=== PATIENT | male | born 1995 | race Caucasian/White ===

== ENCOUNTER 2020-07-02 22:01 | Emergency (ER) | payer OTHER, SELFPAY ==
[2020-07-02 22:43] VITALS: BP 130/88; PULSE 81; RESP 16; TEMP 36.3; O2SAT 98; BMI 30.8
--- NOTE | 2020-07-02 23:13 | XRR_ITS ---
PROCEDURE INFORMATION: Exam: XR Left Hand Exam date and time: 07/02/2020 11:30 PM Age: 24 years old Clinical indication: Injury or trauma; Other: Laceration; Left; Index finger; Injury date: 07/02/20; Additional info: Finger injury TECHNIQUE: Imaging protocol: XR Left hand. Views: 3 or more views. COMPARISON: No relevant prior studies available. FINDINGS: Bones/joints: No fracture. No dislocation. Soft tissues: Laceration involving the soft tissue of the lateral index finger. No soft tissue radiopaque foreign body. XR/XR hand LT min 3V* [id number] IMPRESSION: Soft tissue injury without osseous injury.
--- NOTE | 2020-07-03 00:59 | ED_ITS ---
HPI - Wound/Laceration General: Chief Complaint: Wound/Laceration Stated Complaint: INJURY TO YASH Time Seen by Provider: 07/03/20 00:58 History of Present Illness: HPI narrative: Patient is a 24-year-old male who comes to the ED with a laceration to second digit on left hand. Injury occurred approximately 12 hours ago. Patient says he was cutting his saddle with a knife and it slipped and cut index finger on left hand. He immediately cleaned out laceration and put some antiseptic spray on the skin around wound. He was able to get the bleeding to stop by using pressure. Denies any history of staph or MRSA. Patient says he is up-to-date on his tetanus and has gotten that within the last year. Associated symptoms: Denies chills, fever(s), nausea or vomiting Review of Systems Const: Denies: fever(s), chills or fatigue Eyes: Denies: change in vision or eye discomfort ENMT: Denies: throat pain, odynophagia, nasal discharge or nasal congestion Card: Denies: chest pain, palpitations, edema, swelling of feet/ankles, dyspnea on exertion or orthopnea Resp: Denies: dyspnea, productive cough or non-productive cough GI: Denies: abdominal pain, nausea, vomiting, diarrhea, constipation or hematochezia : Denies: flank pain, difficulty urinating, dysuria or hematuria Musc: Denies: neck pain, back pain or extremity swelling Skin/Breast: Reports: new lesions (laceration to left index finger); Denies: rash Neuro: Denies: headache(s), numbness in extremities or weakness in extremities Physical Exam Const: COMMON NORMALS: no acute distress, patient oriented x3, healthy appearing and alert GENERAL APPEARANCE: cooperative and comfortable HENMT: COMMON NORMALS: normocephalic HEAD & SCALP: normocephalic MOUTH: Normal oral and palatal mucosa present THROAT: posterior oropharynx normal and uvula midline Neck/C-Spine: COMMON NORMALS: supple GENERAL: Yes normal visual inspection Resp: COMMON NORMALS: normal respiratory effort, No retractions, No use of accessory muscles and clear to auscultation bilaterally AUSCULTATION: clear to auscultation bilaterally Cardio: COMMON NORMALS: regular rate, regular rhythm, S1 normal heart sound present, S2 normal heart sound present, No gallops present (Cardio), No clicks present (Cardio), No murmurs present (Cardio) and Peripheral pulses 2+ throughout RATE: regular rate RHYTHM: regular rhythm HEART SOUNDS: S1 normal heart sound present and S2 normal heart sound present PERIPHERAL PULSES: Peripheral pulses 2+ throughout GI: COMMON NORMALS: Normal to inspection, nondistended, normoactive bowel sounds present, Soft to palpation, non-tender and no masses PALPATION: Yes Soft to palpation : COMMON NORMALS: Yes no CVA tenderness BLADDER/KIDNEY EXAM: Yes no CVA tenderness Back/Pelvis: COMMON NORMALS: no CVA tenderness Extremity: NARRATIVE EXTREMITY EXAM: Patient has a 1.5 cm laceration to the second digit of left hand. It is located just below the PIP joint and on the lateral aspect of the finger. It is not actively bleeding. Patient has normal range of motion with finger. GENERAL: Yes normal exam except as noted Neuro: COMMON NORMALS: patient oriented x3 and moves all extremities SENSORIUM/ORIENTATION: Yes alert Skin: NARRATIVE SKIN EXAM: Patient has a 1.5 cm laceration to the second digit of left hand. It is located just below the PIP joint and on the lateral aspect of the finger. It is not actively bleeding. Patient has normal range of motion with finger. GENERAL SKIN EXAM: dry skin Procedures Laceration Laceration 1: Site: hand (2nd digit) Side (If applicable): left Size (cm): 1.5 Description: linear Depth: simple, single layer Local Anesthetic: bupivacaine 0.5% (Digital block) Amount of anesthesia used (mL): 10 Pre-repair: irrigated extensively Skin layer closed with: nylon Size (cm): 4-0 Number of sutures: 7 Technique: simple, interrupted Nerve Block Nerve Block 1: Time out performed: Yes Local Anesthetic: bupivacaine 0.5% Amount of anesthesia used (mL): 10 Side: left Nerve Blocks: digital Procedure Successful: Yes Patient Tolerated Procedure: well Complications: none Course Vital Signs: Vital signs: Vital Signs Temperature 97.3 F L 07/02/20 22:43 Pulse Rate 66 07/03/20 01:05 Respiratory Rate 16 07/03/20 01:05 Blood Pressure 130/74 07/03/20 01:05 Pulse Oximetry 99 07/03/20 01:05 MDM - Wound/Laceration MDM Narrative: Medical decision making narrative: Patient is a 24-year-old male who comes to the ED with a laceration to left index finger. Left hand x- ray showed no acute fractures or foreign body seen. Patient full range of motion of finger. Laceration was irrigated extensively with normal saline. Digital block was performed and 7 (4-0) sutures were placed to close wound. Patient was given prescription for cephalexin. Wear finger splint to keep finger straight to allow for wound to heal. Have sutures removed in 10 days. Patient understood and agreed with plan. Imaging Data^: Xray Ortho: Attestation: I personally reviewed and interpreted this imaging study as follows: My impression: Left hand x-ray showed no foreign body or acute fracture seen. Discharge Plan Discharge Patient Disposition: Home Clinical Impression: Finger laceration Qualifiers: Encounter type: initial encounter Finger: index finger Damage to nail status: without damage Foreign body presence: without foreign body Laterality: left Qualified Code(s): S61.211A - Laceration without foreign body of left index finger without damage to nail, initial encounter Condition: Stable Prescriptions: New cephalexin 500 mg capsule 500 mg PO Q8H 7 Days Qty: 21 RF: 0 Discharge Orders: Discharge Order (Routine); Ordered 07/03/20 Ordered By: Ahsan Fonseca Referrals: Bob Carter FNP [Primary Care Provider] - Discharge Diet: Regular Discharge Activity: Limit activity as instructed Patient Instructions: Finger Laceration (ED) Activity Restrictions/Additional Instructions: Take full course of antibiotics as prescribed. Wear finger splint to keep finger straight for the next 3 to 4 days. Then remove splint and reevaluate wound closure. Keep laceration site clean and dry for the next 48 hours. Then after that you can clean and re-bandage daily. Watch for signs of infection such as redness, warmth, increased tenderness and puslike drainage. If you see the signs of infection return to the ED, urgent care or PCP for reevaluation. call your PCP to schedule a follow-up appointment for reevaluation and suture removal in about 10 days. Follow discharge plans as discussed. You can return to the ED if symptoms worsen. Coding Level of Care Code ED Medical Lab Technician for [facility] Exam Comprehensive
[2020-07-03 01:05] VITALS: BP 130/74; PULSE 66; RESP 16; O2SAT 99
[2020-07-03] MEDS: cephALEXin 500 mg Capsule PO (02:27)
[2020-07-03 02:32] VITALS: BP 121/76; PULSE 63; RESP 16
== END 2020-07-03 02:39 | disposition home or self-care (01) ==
PROVIDERS: Emergency Provider Physician Assistant; Family Provider Nurse Practitioner Family; PCP Nurse Practitioner Family
DX: S61.211A Laceration without foreign body of left index finger without damage to nail, initial encounter (principal); W26.0XXA Contact with knife, initial encounter
CPT/HCPCS: 12001; 12345; 73130; 99282; 99283; J3490

== ENCOUNTER 2022-01-14 20:16 | Emergency (ER) | payer BC, SELFPAY ==
--- NOTE | 2022-01-14 20:27 | XRR_ITS ---
PROCEDURE INFORMATION: Exam: XR Right Hand Exam date and time: 01/14/2022 8:46 PM Age: 26 years old Clinical indication: Pain; Hand; Right; Additional info: Injury TECHNIQUE: Imaging protocol: XR Right hand. Views: 3 or more views. COMPARISON: No relevant prior studies available. FINDINGS: Bones/joints: Old, healed fracture of the diaphysis of the fifth metacarpal with residual volar angulation of the distal fracture fragment. Findings are consistent with an old boxer's fracture. Fracture of the distal metaphysis of the fifth metacarpal with volar angulation of the distal fracture fragment. Findings are consistent with a boxer's fracture. No dislocation. Normal bone mineralization. No joint effusion. Joint spaces are maintained. Soft tissues: Mild soft tissue swelling over the 5th metacarpal. No radiopaque foreign body. XR/XR hand RT min 3V* [id number] IMPRESSION: 1. Findings consistent with an acute boxer's fracture of the distal fifth metacarpal. 2. Old boxer's fracture of the mid diaphysis of the 5th metacarpal.
[2022-01-14 20:29] VITALS: BP 117/74; PULSE 102; RESP 18; TEMP 36.6; O2SAT 99; BMI 35.5
--- NOTE | 2022-01-14 20:40 | ED_ITS ---
HPI - Extremity Problem General: Chief complaint: Extremity Injury, Upper Stated complaint: injured R hand Time Seen by Provider: 01/14/22 20:27 Source: patient Mode of arrival: ambulatory Limitations: no limitations History of Present Illness: 26-year-old male who states that he was kicked by a donkey 2 hours ago in his right hand. He states he has broken that hand before but states he did not wear cast wrist surgery and states when he got kicked he had immediate sharp pain he states pain is an 8 out of 10 on the lateral portion of his hand denies any other injuries denies radiation of his pain states pain is much worse with movement or palpation and is improved with rest Associated symptoms: Reports chest pain; Deny fever(s) or rash Review of Systems Const: Denies: fever(s), chills, body aches or change in appetite Eyes: Denies: blurry vision or eye discomfort ENMT: Denies: throat pain or dental pain Card: Reports: chest pain Resp: Denies: dyspnea GI: Denies: abdominal pain, nausea, vomiting or diarrhea : Denies: dysuria Musc: Denies: neck pain or back pain Skin/Breast: Denies: rash Neuro: Denies: headache(s) Psych: Denies: depression Aleks/Lymph: Denies: easy bruising All/Imm: Denies: urticaria PFSH ED PFSH: Medical History (Updated 01/14/22 @ 21:01 by Lashawn Pham MD) No pertinent past medical history Social History (Updated 01/14/22 @ 20:42 by Lashawn Pham MD) Substance/Drug Use: never Physical Exam Const: COMMON NORMALS: no acute distress, patient oriented x3 and healthy appearing HENMT: COMMON NORMALS: normocephalic and atraumatic HEAD & SCALP: normocephalic and atraumatic Eye: COMMON NORMALS: Equal, round and reactive pupils present and EOMs intact bilaterally PUPIL: Yes Equal, round and reactive pupils present Neck/C-Spine: COMMON NORMALS: full ROM and supple Chest: COMMONS NORMALS: normal inspection of the chest and normal palpation of entire chest wall Resp: COMMON NORMALS: normal respiratory effort, No retractions, No use of accessory muscles and clear to auscultation bilaterally AUSCULTATION: clear to auscultation bilaterally Cardio: COMMON NORMALS: regular rate, regular rhythm and No murmurs present (Cardio) RATE: regular rate RHYTHM: regular rhythm GI: COMMON NORMALS: Normal to inspection, nondistended, normoactive bowel sounds present, Soft to palpation, non-tender and no masses PALPATION: Yes Soft to palpation Extremity: COMMON NORMALS: full ROM NARRATIVE EXTREMITY EXAM: Tenderness over right lateral hand Neuro: COMMON NORMALS: patient oriented x3, moves all extremities and no focal motor deficits Psych: COMMON NORMALS: mental status grossly normal, Normal thought process present and cooperative THOUGHT PROCESS: Normal thought process present Skin: COMMON NORMALS: no rashes or lesions noted and no wounds GENERAL SKIN EXAM: no rashes or lesions noted Course Vital Signs: Vital signs: Vital Signs Temperature 97.9 F 01/14/22 20:29 Pulse Rate 102 H 01/14/22 20:29 Respiratory Rate 18 01/14/22 20:29 Blood Pressure 117/74 01/14/22 20:29 Pulse Oximetry 99 01/14/22 20:29 MDM - Extremity (Nontraumatic) Medical Decision Making Patient presents here with right hand injury after being kicked by a donkey x- ray shows possible fracture to right fifth metacarpal distal portion we will place him in a ulnar gutter splint and have him follow-up with orthopedics. Discharge Plan Discharge Patient Disposition: Home Clinical Impression: Fracture of hand Qualifiers: Encounter type: initial encounter Fracture type: closed Laterality: right Qualified Code(s): S62.91XA - Unspecified fracture of right wrist and hand, initial encounter for closed fracture Prescriptions: New hydrocodone-acetaminophen 5-325 mg tablet 1 tab PO Q6H PRN (Reason: pain) Qty: 14 0RF Discharge Orders: Discharge ED (Routine); Ordered 01/14/22 Ordered By: Lashawn Pham Referrals: Nadiya Bunch MD [Physician] - 1-3 days Bob Carter FNP [Primary Care Provider] - Discharge Diet: Advance as tolerated Discharge Activity: Resume usual activity Patient Instructions: Hand Fracture (ED), Opioid Safety Stand Alone Forms: Work/School Release Coding Level of Care Code ED Friction Paint Machine Tender for [facility] Fwd Exam Comprehensive
[2022-01-14] MEDS: HYDROcodone-acetaminophen 7.5-325 mg Tablet 1 TAB PO (20:45)
--- NOTE | 2022-01-16 08:50 | DCPLANNER ---
Addendum entered by Sanam Steele 01/22/22 19:38: Patient had a follow up appointment scheduled with ortho - patient did attend appointment. Addendum entered by Sanam Steele 01/17/22 14:50: Patient has a follow up appointment scheduled for Thursday, January 20, 2022 at 2:[address] Bunch at ortho. Clinic will call patient with appointment information. Original Note: late entry - clinical case manager had message to schedule a follow up appointment for patient with ortho. automotive sales manager sent patients information to the front office staff at ortho. Patients information will be printed and reviewed. Clinic will call patient with appointment information.
== END 2022-01-14 21:21 | disposition home or self-care (01) ==
PROVIDERS: Emergency Provider Emergency Medicine; PCP Nurse Practitioner Family
DX: S62.91XA Unspecified fracture of right hand, initial encounter for closed fracture (principal); W55.32XA Struck by other hoof stock, initial encounter
CPT/HCPCS: 29125; 73130; 99283

== ENCOUNTER 2022-01-16 09:48 | Emergency (ER) | payer BC, SELFPAY ==
[2022-01-16 09:54] VITALS: BP 131/87; PULSE 55; RESP 18; TEMP 36.7; O2SAT 100; BMI 35.5
--- NOTE | 2022-01-16 09:58 | ED_ITS ---
HPI - Extremity Problem General: Chief complaint: Extremity Injury, Upper Stated complaint: Right hand numb and cold previous injury Time Seen by Provider: 01/16/22 09:58 Source: patient Mode of arrival: ambulatory Limitations: no limitations History of Present Illness: 26-year-old male presents emergency room he seen a couple days ago with a right fifth metatarsal fracture (boxer's fracture). No recurrent injury. He states he feels like the fingers have been numb and tingling. He still has a splint in place that was applied that evening. MD Complaint: extremity pain and extremity swelling Onset (ago): day(s) Pain Consistency: constant Location: right Quality: other (Numbness tingling) Relieving factors: nothing Exacerbating factors: nothing Associated symptoms: Deny arthralgias, chest pain, fever(s), myalgias, rash or short of breath Review of Systems Const: Denies: fever(s) or chills Card: Denies: chest pain Skin/Breast: Denies: rash PFS ED PFSH: Medical History No pertinent past medical history Physical Exam Const: COMMON NORMALS: no acute distress GENERAL APPEARANCE: cooperative and comfortable ORIENTATION/CONSCIOUSNESS: Yes awake, Yes oriented to person, Yes oriented to place and Yes oriented to time HENMT: COMMON NORMALS: normocephalic and atraumatic HEAD & SCALP: normocephalic and atraumatic Resp: COMMON NORMALS: normal respiratory effort, No retractions and clear to auscultation bilaterally AUSCULTATION: clear to auscultation bilaterally Cardio: COMMON NORMALS: regular rate and regular rhythm RATE: regular rate RHYTHM: regular rhythm Extremity: COMMON NORMALS: normal to inspection, capillary refill normal, no clubbing, cyanosis or edema, no calf tenderness and no pedal edema Neuro: SENSORIUM/ORIENTATION: Yes oriented to person, Yes oriented to place and Yes oriented to time Skin: COMMON NORMALS: no rashes or lesions noted GENERAL SKIN EXAM: no rashes or lesions noted Course Vital Signs: Vital signs: Vital Signs Temperature 98.1 F 01/16/22 09:54 Pulse Rate 55 L 01/16/22 09:54 Respiratory Rate 18 01/16/22 09:54 Blood Pressure 131/87 01/16/22 09:54 Pulse Oximetry 100 04/28/22 09:54 MDM - Extremity (Nontraumatic) Medical Decision Making Fracture remained stable good capillary refill neurovascular intact splint rewrapped looser to for comfort follow-up with Ortho as planned Medical Records I reviewed the patient's medical records. Lab Data I reviewed the patient's lab results. Radiology Impressions Hand X-Ray 01/16/22 09:59 IMPRESSION: 1. Increasing soft tissue edema along the dorsal surface of the hand. 2. Acute minimally displaced and volarly angulated fifth distal metacarpal fracture. Discharge Plan Discharge Patient Disposition: Home Clinical Impression: Boxer's fracture Condition: Stable Prescriptions: No Action hydrocodone-acetaminophen 5-325 mg tablet 1 tab PO Q6H PRN (Reason: pain) Qty: 14 0RF Discharge Orders: Discharge ED (Routine); Ordered 01/16/22 Ordered By: Jeremias Lerma Referrals: Bob Carter FNP [Primary Care Provider] - Discharge Diet: Usual diet Discharge Activity: Limit activity as instructed Patient Instructions: Opioid Safety Activity Restrictions/Additional Instructions: Limit use of right hand until released by orthopedics Coding Level of Care Code ED Dredge Lever Operator for [facility] Fwd Exam Detailed
--- NOTE | 2022-01-16 09:59 | XR_ITS ---
WS: [id number] RIGHT HAND: 3 VIEW(S) TECHNIQUE: PA, oblique and lateral. HISTORY: pain/boxer fx COMPARISON: 01/14/2022 Acute boxer's fracture involving the fifth metacarpal neck with slight volar angulation of the head. This was described on 01/14/2022 without increase or change in alignment. Probably remote fracture in the mid metacarpal as there is increased callus formation. No additional fractures are identified. Increased soft tissue swelling and edema over the dorsal surface of the hand. Edema has increased sin ce the prior study. XR/XR hand RT min 3V* [id number] IMPRESSION: 1. Increasing soft tissue edema along the dorsal surface of the hand. 2. Acute minimally displaced and volarly angulated fifth distal metacarpal fra cture.
[2022-01-16 10:44] VITALS: BP 132/80; PULSE 58; O2SAT 99
== END 2022-01-16 10:47 | disposition home or self-care (01) ==
PROVIDERS: Emergency Provider Family Medicine; PCP Nurse Practitioner Family
DX: S62.326A Displaced fracture of shaft of fifth metacarpal bone, right hand, initial encounter for closed fracture (principal); X58.XXXA Exposure to other specified factors, initial encounter
CPT/HCPCS: 73130; 99282

== ENCOUNTER 2022-01-20 15:52 | Outpatient (CLI) | payer BC, SELFPAY | END 2022-01-20 15:53 | disposition home or self-care (01) | LOC: SPT 15:53 | PROVIDERS: PCP Nurse Practitioner Family; Visit Provider Specialist | DX: Z46.89 Encounter for fitting and adjustment of other specified devices (principal); S62.336D Displaced fracture of neck of fifth metacarpal bone, right hand, subsequent encounter for fracture with routine healing; X58.XXXD Exposure to other specified factors, subsequent encounter | CPT/HCPCS: 73130; 97760; L3984 ==

== ENCOUNTER → 2022-02-10 09:43 | Outpatient (BNVA) | payer BC, SELFPAY | PROVIDERS: PCP Nurse Practitioner Family; Visit Provider Specialist | DX: S62.336D Displaced fracture of neck of fifth metacarpal bone, right hand, subsequent encounter for fracture with routine healing (principal); X58.XXXD Exposure to other specified factors, subsequent encounter | CPT/HCPCS: 73130 ==

== ENCOUNTER 2022-06-26 20:49 | Emergency (ER) | payer BC, SELFPAY ==
--- NOTE | 2022-06-26 21:28 | CTR_ITS ---
PROCEDURE INFORMATION: Exam: CT Head Without Contrast Exam date and time: 06/26/2022 9:41 PM Age: 26 years old Clinical indication: Injury or trauma; Fall; Blunt trauma (contusions or hematomas); Patient HX: Sustained a blow to occiput from a tractor shaft spinnning at high rpm that broke loose. C/O occipatal pain with light sensitivity. ; Additional info: Head injury TECHNIQUE: Imaging protocol: Computed tomography of the head without contrast. Radiation optimization: All CT scans at this facility use at least one of these dose optimization techniques: automated exposure control; mA and/or kV adjustment per patient size (includes targeted exams where dose is matched to clinical indication); or iterative reconstruction. COMPARISON: CT head wo con* [id number] 07/10/2017 7:03 PM RADIATION DOSE METRICS: Total DLP (mGy-cm): 1201.78 FINDINGS: Brain: Normal. No hemorrhage. Unremarkable white matter. No mass effect. Cerebral ventricles: No ventriculomegaly. Paranasal sinuses: Minimal paranasal sinus disease. No fluid levels. Mastoid air cells: Visualized mastoid air cells are well aerated. Bones/joints: Unremarkable. No acute fracture. Soft tissues: Unremarkable. CT/CT head wo con* [id number] IMPRESSION: No acute intracranial hemorrhage, mass effect, or midline shift.
[2022-06-26 21:30] VITALS: BP 150/105; PULSE 83; RESP 20; O2SAT 100; BMI 36.1
--- NOTE | 2022-06-26 21:31 | W.ED.HEATRA ---
HPI - Head Injury General: Chief complaint: Head Injury Stated complaint: Head injury Time Seen by Provider: 06/26/22 21:28 Source: patient Mode of arrival: ambulatory Limitations: no limitations History of Present Illness: 26-year-old male who states that he is working with a tractor and that the auger had broke the drive shaft and it whipped around and hit him in the back of the head. He did lose consciousness he had trouble speaking a little while after the event as well. This happened roughly an hour ago his speech is back to normal he states he does have a headache he rates an 8 out of 10 along with some light sensitivity denies any neck pain denies any other injuries. Associated symptoms: Deny nausea, neck pain or vomiting Review of Systems Const: Denies: fever(s), chills, body aches or change in appetite Eyes: Denies: blurry vision or eye discomfort ENMT: Denies: throat pain or dental pain Card: Denies: chest pain Resp: Denies: dyspnea GI: Denies: abdominal pain, nausea, vomiting or diarrhea : Denies: dysuria Musc: Denies: neck pain or back pain Skin/Breast: Denies: rash Neuro: Reports: headache(s) Psych: Denies: depression Aleks/Lymph: Denies: easy bruising All/Imm: Denies: urticaria PFSH ED PFSH: Medical History No pertinent past medical history Social History Smoking and tobacco status: never smoked Physical Exam Const: COMMON NORMALS: no acute distress, patient oriented x3 and healthy appearing HENMT: OTHER: Tenderness to posterior scalp Eye: COMMON NORMALS: Equal, round and reactive pupils present and EOMs intact bilaterally PUPIL: Yes Equal, round and reactive pupils present Neck/C-Spine: COMMON NORMALS: full ROM and supple Chest: COMMONS NORMALS: normal inspection of the chest and normal palpation of entire chest wall Resp: COMMON NORMALS: normal respiratory effort, No retractions, No use of accessory muscles and clear to auscultation bilaterally AUSCULTATION: clear to auscultation bilaterally Cardio: COMMON NORMALS: regular rate, regular rhythm and No murmurs present (Cardio) RATE: regular rate RHYTHM: regular rhythm GI: COMMON NORMALS: Normal to inspection, nondistended, normoactive bowel sounds present, Soft to palpation, non-tender and no masses PALPATION: Yes Soft to palpation Extremity: COMMON NORMALS: normal to inspection and full ROM Neuro: COMMON NORMALS: patient oriented x3, moves all extremities and no focal motor deficits Psych: COMMON NORMALS: mental status grossly normal, Normal thought process present and cooperative THOUGHT PROCESS: Normal thought process present Skin: COMMON NORMALS: no rashes or lesions noted and no wounds GENERAL SKIN EXAM: no rashes or lesions noted Course Vital Signs: Vital signs: Vital Signs Pulse Rate 77 06/26/22 22:13 Respiratory Rate 16 06/26/22 22:13 Blood Pressure 137/93 06/26/22 22:13 Pulse Oximetry 97 06/26/22 22:13 Oxygen Delivery Me thod 06/26/22 21:30 MDM - Head Injury Medcial Decision Making Patient presents here with a closed head injury with likely concussion head CT here is normal he is well-appearing here he stable for discharge he is to not work until Thursday we will prescribe him pain meds if he has any worsening symptoms he is return he understands agrees to plan. Lab Data Radiology Impressions Head CT 06/26/22 21:28 IMPRESSION: No acute intracranial hemorrhage, mass effect, or midline shift. Discharge Plan Discharge Patient Disposition: Home Clinical Impression: Closed head injury Qualifiers: Encounter type: initial encounter Qualified Code(s): S09.90XA - Unspecified injury of head, initial encounter Condition: Stable Prescriptions: New hydrocodone-acetaminophen 5-325 mg tablet 1 tab PO Q6H PRN (Reason: pain) Qty: 14 0RF No Action (DME) ULNTER GUTTER FAST FORM COCK UP SPLINT See Rx Instructions .ROUTE .MEDSUPPLY Qty: 1 0RF Rx Instructions: As directed (DME) ULNTER GUTTER FAST FORM COCK UP SPLINT See Rx Instructions .Route .MEDSUPPLY Qty: 1 0RF Rx Instructions: As directed hydrocodone-acetaminophen 5-325 mg tablet 1 tab PO Q6H PRN (Reason: pain) Qty: 14 0RF Discharge Orders: Discharge ED (Routine); Ordered 06/26/22 Ordered By: Lashawn Pham Referrals: Bob Carter FNP [Primary Care Provider] - 1-3 days Discharge Diet: Advance as tolerated Discharge Activity: Resume usual activity Patient Instructions: Concussion (ED), Head Injury (ED), Opioid Safety Coding Level of Care Code ED Chief Architect for [facility] Fwd Exam Comprehensive
[2022-06-26] MEDS: HYDROcodone-acetaminophen 5-325 mg Tablet 1 TAB PO (21:39)
[2022-06-26 22:13] VITALS: BP 137/93; PULSE 77; RESP 16; O2SAT 97
[2022-06-26 23:06] VITALS: BP 139/89; PULSE 79; RESP 18; TEMP 36.7; O2SAT 99
== END 2022-06-26 23:09 | disposition home or self-care (01) ==
PROVIDERS: Emergency Provider Emergency Medicine; PCP Nurse Practitioner Family
DX: S09.8XXA Other specified injuries of head, initial encounter (principal); W20.8XXA Other cause of strike by thrown, projected or falling object, initial encounter
CPT/HCPCS: 70450; 99284

== ENCOUNTER → 2022-09-08 12:27 | Outpatient (BNVA) | payer BC, SELFPAY | PROVIDERS: PCP Nurse Practitioner Family; Visit Provider Family Medicine Adult Medicine | DX: J06.9 Acute upper respiratory infection, unspecified (principal); Z20.822 Contact with and (suspected) exposure to COVID-19 | CPT/HCPCS: 87426 ==

== ENCOUNTER 2023-08-02 12:34 | Emergency (ER) | payer BC, SELFPAY ==
[2023-08-02 12:40] VITALS: BP 142/94; PULSE 101; RESP 17; TEMP 36.9; O2SAT 100; BMI 34.4
--- NOTE | 2023-08-02 12:55 | ED_ITS ---
HPI - General Adult General: Chief complaint: Wound/Laceration Stated complaint: Cut finger said he needs stiches cant stop bleedin Time Seen by Provider: 08/02/23 12:52 Source: patient Mode of arrival: ambulatory Limitations: no limitations History of Present Illness: 27-year-old male states that he was skinning a deer lacerated his left index finger. He does have a laceration of the base of the left index finger states this just happened 30 minutes ago he is up-to-date on his tetanus he denies any other injuries bleeding controlled at this time. Associated symptoms: Deny chest pain, dyspnea, headache(s), nausea, rash or vomiting Review of Systems Const: Denies: fever(s), chills, body aches or change in appetite ENMT: Denies: throat pain or dental pain Card: Denies: chest pain Resp: Denies: dyspnea GI: Denies: abdominal pain, nausea, vomiting or diarrhea Musc: Denies: neck pain or back pain Skin/Breast: Reports: skin pain; Denies: rash Neuro: Denies: headache(s) PFSH ED PFSH: Medical History Acute pharyngitis No pertinent past medical history URI with cough and congestion Social History Smoking and tobacco/nicotine status: never used tobacco/nicotine Substance/Drug Use: never Physical Exam Const: COMMON NORMALS: no acute distress, patient oriented x3 and healthy appearing HENMT: COMMON NORMALS: normocephalic and atraumatic HEAD & SCALP: normocephalic and atraumatic Eye: COMMON NORMALS: Equal, round and reactive pupils present PUPIL: Yes Equal, round and reactive pupils present Neck/C-Spine: COMMON NORMALS: full ROM and supple Chest: COMMONS NORMALS: normal inspection of the chest Resp: COMMON NORMALS: normal respiratory effort Extremity: COMMON NORMALS: full ROM Neuro: COMMON NORMALS: patient oriented x3, moves all extremities and no focal motor deficits Psych: COMMON NORMALS: mental status grossly normal, Normal thought process present and cooperative THOUGHT PROCESS: Normal thought process present Skin: COMMON NORMALS: no rashes or lesions noted NARRATIVE SKIN EXAM: 4 cm laceration base of left index finger no tendon involvement GENERAL SKIN EXAM: no rashes or lesions noted Procedures Laceration Laceration 1: Site: hand Side (If applicable): left Size (cm): 4 Description: linear Depth: simple, single layer Local Anesthetic: lidocaine 1% Amount of anesthesia used (mL): 8 Pre-repair: irrigated extensively and deep structures intact Skin layer closed with: nylon Size (cm): 4-0 Number of sutures: 6 Technique: simple, interrupted Course Vital Signs: Vital signs: Vital Signs Temperature 98.4 F 08/02/23 12:40 Pulse Rate 101 H 08/02/23 12:40 Respiratory Rate 17 08/02/23 12:40 Blood Pressure 142/94 08/02/23 12:40 Pulse Oximetry 100 08/02/23 12:40 Oxygen Delivery Me thod Room Air 08/02/23 12:40 MDM - General Adult Medical Decision Making Patient presents here with finger laceration laceration was repaired here he is to have sutures out in 7 days no tendon involvement he is stable for discharge return if worsening Medical Records I reviewed the patient's medical records. No radiology studies performed this visit Discharge Plan Discharge Patient Disposition: Home Clinical Impression: Finger laceration Condition: Stable Prescriptions: No Action triamcinolone acetonide [Nasacort Allergy] 55 mcg aerosol,spray 2 spray intranasal DAILY Qty: 16.9 1RF Rx Instructions: administer into each nostril amoxicillin 875 mg tablet 875 mg PO BID Qty: 14 0RF Discharge Orders: Discharge ED (Routine); Ordered 08/02/23 Ordered By: Lashawn Pham Referrals: Bob Carter FNP [Primary Care Provider] - Discharge Diet: Advance as tolerated Discharge Activity: Resume usual activity Patient Instructions: Care For Your Stitches (ED), Laceration (ED) Activity Restrictions/Additional Instructions: Suture removal in 7 days 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
== END 2023-08-02 13:48 | disposition home or self-care (01) ==
PROVIDERS: Emergency Provider Emergency Medicine; PCP Nurse Practitioner Family
DX: S61.211A Laceration without foreign body of left index finger without damage to nail, initial encounter (principal); W26.0XXA Contact with knife, initial encounter
CPT/HCPCS: 12002; 99282

== ENCOUNTER 2023-09-29 08:05 | Emergency (ER) | payer OTHER, SELFPAY ==
[2023-09-29 08:09] VITALS: BP 127/88; PULSE 68; RESP 18; TEMP 36.7; O2SAT 97
--- NOTE | 2023-09-29 08:13 | ED_ITS ---
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 Associated symptoms: Denies chills or fever(s) Review of Systems Const: Denies: fever(s) or chills Resp: Denies: dyspnea [facility] ED PFSH: Medical History (Updated 09/29/23 @ 08:45 by Jeremias Lerma DO) URI with cough and congestion Social History Smoking and tobacco/nicotine status: never used tobacco/nicotine Substance/Drug Use: never Physical Exam Const: COMMON NORMALS: no acute distress GENERAL APPEARANCE: cooperative and comfortable ORIENTATION/CONSCIOUSNESS: Yes awake Procedures Laceration Laceration 1: Site: hand Side (If applicable): left Size (cm): 6 Description: linear Depth: simple, single layer Local Anesthetic: lidocaine 1% and with epi Amount of anesthesia used (mL): 3 Pre-repair: wound explored, irrigated extensively and deep structures intact Skin layer closed with: other (prolene) Size (cm): 3-0 Number of sutures: 1 Technique: running Course Vital Signs: Vital signs: Vital Signs Temperature 98.1 F 09/29/23 08:09 Pulse Rate 68 09/29/23 08:09 Respiratory Rate 18 09/29/23 08:09 Blood Pressure 127/88 09/29/23 08:09 Pulse Oximetry 97 09/29/23 08:09 Oxygen Delivery Me thod Room Air 09/29/23 08:09 MDM - Wound/Laceration Medical Decision Making Wound care instructions given apply topical [id number] antibiotic ointment twice daily. Augmentin 875 twice daily for 5 days due to the conditions which she sustained the injury. Sutures out in 7 to 10 days. He can return to work but should only do jobs that he is able to keep the wound protected, clean and dry until the sutures are out No radiology studies performed this visit Discharge Plan Discharge Patient Disposition: Home Clinical Impression: Laceration Condition: Stable Prescriptions: New amoxicillin-pot clavulanate 875-125 mg tablet 1 tab PO BID Qty: 10 0RF Discharge Orders: Discharge ED (Routine); Ordered 09/29/23 Ordered By: Jeremias Lerma Referrals: Bob Carter FNP [Primary Care Provider] - Discharge Diet: Usual diet Discharge Activity: Increase activity as tolerated Patient Instructions: Opioid Safety, Pain Management Activity Restrictions/Additional Instructions: Thank you for choosing [facility] for your healthcare needs today. Please realize this is an emergency room and that we are providing you with a medical screening exam and this may not be complete and all inclusive of all the testing and or work up that you may need to determine your ailment or severity of your illness. It is very important that you follow up as instructed or that you return to the Emergency Department should you have concerns or if your condition changes or worsens in any way. Sutures should be removed in 10 days. Keep wound clean dry and covered during that time. Apply topical antibiotic ointment twice daily. 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
[2023-09-29] MEDS: tetanus-dipt-pertussis 0.5 mL SDV IM (08:38)
[2023-09-29] MEDS: ceFAZolin 1,000 MG in water for injection-sterile 2.5 ML 1 MG IM (08:40)
--- NOTE | 2023-09-29 08:58 | PC.NURSE ---
L hand laceration repair with irrigation and sutures by Dr Lerma.
== END 2023-09-29 09:02 | disposition home or self-care (01) ==
PROVIDERS: Emergency Provider Family Medicine; PCP Nurse Practitioner Family
DX: S61.412A Laceration without foreign body of left hand, initial encounter (principal); W26.8XXA Contact with other sharp object(s), not elsewhere classified, initial encounter; Y99.0 Civilian activity done for income or pay; Z23 Encounter for immunization
CPT/HCPCS: 12002; 90471; 90715; 96372; 99284; A6446; J0690

== ENCOUNTER 2024-01-02 18:44 | Emergency (ER) | payer BC, SELFPAY ==
[2024-01-02 18:58] VITALS: BP 118/76; PULSE 108; RESP 18; TEMP 36.7; O2SAT 98; BMI 35.6
--- NOTE | 2024-01-02 19:24 | XRR_ITS ---
PROCEDURE INFORMATION: Exam: XR Left Knee Exam date and time: 01/02/2024 7:36 PM Age: 28 years old Clinical indication: Injury or trauma; Patella or knee; Left; Foreign body involvement not specified; Patient HX: Laceration to anterior side of knee from chainsaw. ; Additional info: Chainsaw injury anterior knee TECHNIQUE: Imaging protocol: Radiologic exam of the left knee. Views: 3 views. COMPARISON: CR XR ankle LT min 3V* [id number] 05/21/2022 12:09 PM FINDINGS: Bones/joints: No evidence of acute fracture or dislocation. No erosive disease. No significant degenerative change. No evidence of patellar displacement. Soft tissues: There is a soft tissue defect along the anterior distal thigh just above the patella. No radiopaque foreign body. XR/XR knee LT 3V* [id number] IMPRESSION: Suprapatellar soft tissue laceration. There is no evidence of full-thickness injury of the suprapatellar quadriceps tendon. No radiopaque foreign body.
--- NOTE | 2024-01-02 19:25 | ED_ITS ---
HPI - Wound/Laceration General: Chief Complaint: Wound/Laceration Stated Complaint: left leg lac Time Seen by Provider: 01/02/24 19:19 History of Present Illness: 28-year-old male presenting with a chain saw injury to the anterior left distal thigh. He bled some on the scene, and quick clot was poured in the wound. This was followed by pressure dressing. Bleeding is now controlled. The patient complains of some paresthesias to the anterior leg. He is otherwise able to move his toes, and leg appropriately. He does not have bony tenderness. Associated symptoms: Denies vomiting Review of Systems GI: Denies: vomiting Musc: Denies: neck pain Neuro: Reports: numbness in extremities (subjective) [facility] ED PFSH: Medical History URI with cough and congestion Social History Smoking and tobacco/nicotine status: never used tobacco/nicotine Substance/Drug Use: never Physical Exam Const: COMMON NORMALS: no acute distress GENERAL APPEARANCE: cooperative; not ill appearing and not frail appearing HENMT: COMMON NORMALS: normocephalic, atraumatic and Normal external nose present HEAD & SCALP: normocephalic and atraumatic FACE & SINUS: normal facial exam and face symmetric NOSE: Normal external nose present Eye: COMMON NORMALS: Equal, round and reactive pupils present and EOMs intact bilaterally PUPIL: Yes Equal, round and reactive pupils present Neck/C-Spine: GENERAL: Yes trachea midline Chest: CHEST: Yes Symmetrical chest wall rise Resp: COMMON NORMALS: normal respiratory effort, No retractions and No use of accessory muscles Cardio: COMMON NORMALS: regular rate and regular rhythm RATE: regular rate RHYTHM: regular rhythm Extremity: NARRATIVE EXTREMITY EXAM: 9 cm laceration to anterior thigh, to th e subcutaneous fat level. Macerated skin tissue overlies. Bleeding is controlled. No noted foreign bodies. Neuro: JA COMA SCALE: document GCS findings Ja coma scale eye opening: Spontaneous [place] coma scale verbal response: Orientated [place] coma scale motor response: Obey commands [place] coma scale total score: 15 SENSORY EXAM: Yes extremities (intact) Psych: COMMON NORMALS: speech normal SPEECH: Yes normal speech Skin: COMMON NORMALS: no rashes or lesions noted GENERAL SKIN EXAM: no rashes or lesions noted Procedures Laceration Laceration 1: Site: lower extremity Side (If applicable): left Size (cm): 9 Description: irregular and contaminated Local Anesthetic: lidocaine 1% Amount of anesthesia used (mL): 12 Pre-repair: wound explored, irrigated extensively, deep structures intact and extensive debridement Skin layer closed with: other (prolene) Size (cm): 3-0 Number of sutures: 9 Technique: simple, interrupted Subcutaneous layer closed with: vicryl Size: 3-0 Number of sutures: 4 Technique: simple, interrupted Course Vital Signs: Vital signs: Vital Signs Temperature 98.1 F 01/02/24 18:58 Pulse Rate 108 H 01/02/24 18:58 Respiratory Rate 18 01/02/24 18:58 Blood Pressure 118/76 01/02/24 18:58 Pulse Oximetry 98 01/02/24 18:58 Oxygen Delivery Me thod Room Air 01/02/24 18:58 MDM - Wound/Laceration Medical Decision Making Extensor mechanism is intact on exam. Wound was probed with sterile probe, and only fat layer involved. X-ray shows no air in the joint or foreign body. Extensive irrigation performed. Closed without complication. Outpatient follow-up. His tetanus is up-to-date. Antibiotics prescribed. Lab Data Radiology Impressions Knee X-Ray 01/02/24 19:24 IMPRESSION: Suprapatellar soft tissue laceration. There is no evidence of full-thickness injury of the suprapatellar quadriceps tendon. No radiopaque foreign body. All radiology interpretation(s) finalized by discharge Discharge Plan Discharge Patient Disposition: Home Clinical Impression: Deep laceration of thigh Condition: Stable Prescriptions: New cephalexin 500 mg tablet 500 mg PO Q6H 7 Days Qty: 28 0RF hydrocodone-acetaminophen 5-325 mg tablet 1 tab PO Q8H PRN (Reason: pain) Qty: 7 0RF No Action amoxicillin-pot clavulanate 875-125 mg tablet 1 tab PO BID Qty: 10 0RF Discharge Orders: Discharge ED (Routine); Ordered 01/02/24 Ordered By: Alexandre Saxena Referrals: Black Ferro MD [Primary Care Provider] - 4-7 days (For wound check) Patient Instructions: Laceration (ED), Opioid Safety, Pain Management Activity Restrictions/Additional Instructions: Keep clean and dry for 24 hours, then you may wash with soap and running water. Do not submerge in a tub, etc. Until sutures are removed. Sutures should be removed in 7 to 10 days. See your doctor for this. Antibiotics as directed. Return for any problems. 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
[2024-01-02] MEDS: oxyCODONE-APAP 5-325 mg Tablet 2 TAB PO (19:29)
[2024-01-02] MEDS: lidocaine-epi 1% 20 mL INJ INJECTION (20:45)
--- NOTE | 2024-01-02 20:53 | PC.NURSE ---
Cleaned right knee after provider sutured laceration. Covered with abd pad and kerlex dressing
[2024-01-02] MEDS: cephALEXin 500 mg Capsule 1000 MG PO (21:00)
== END 2024-01-02 21:02 | disposition home or self-care (01) ==
PROVIDERS: Emergency Provider Emergency Medicine; PCP Family Medicine
DX: S71.112A Laceration without foreign body, left thigh, initial encounter (principal); W29.3XXA Contact with powered garden and outdoor hand tools and machinery, initial encounter
CPT/HCPCS: 12034; 73562; 99283

== ENCOUNTER 2025-01-13 16:31 | Emergency (ER) | payer BC, SELFPAY ==
[2025-01-13 16:31] VITALS: BP 156/96; PULSE 92; RESP 16; TEMP 36.1; O2SAT 100; BMI 43.2
--- NOTE | 2025-01-13 16:59 | XRR_ITS ---
PROCEDURE INFORMATION: Exam: XR Left Foot Exam date and time: 01/13/2025 5:19 PM Age: 29 years old Clinical indication: Left; Pain to top of lt foot; No known injury TECHNIQUE: Imaging protocol: Radiologic exam of the left foot. Views: 3 or more views. COMPARISON: CR XR ankle LT min 3V* [id number] 05/21/2022 12:09 PM FINDINGS: Bones/joints: Normal. Soft tissues: Normal. XR/XR foot LT min 3V* [id number] IMPRESSION: No acute findings.
--- NOTE | 2025-01-13 17:21 | ED_ITS ---
HPI - Extremity Problem General: Chief complaint: Extremity Injury, Lower Stated complaint: left foot injury Time Seen by Provider: 01/13/25 17:14 Source: patient Mode of arrival: ambulatory Limitations: no limitations History of Present Illness: Patient is a 29-year-old male who presents emergency department complaining of left foot pain since Thursday. Has never had any issues with this foot before, no previous fractures or surgeries. 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 Pain reported to be to the dorsal left foot, where he notes there has been swelling. States that he can feel the pain when he walks, has been needing to walk on the balls of his feet to avoid pain. Does not report any pain in his ankle. No trauma reported. Has not taken anything for pain. Pain has been constant since onset, nonradiating. MD Complaint: extremity pain Onset (ago): day(s) Pain Consistency: constant Location: left and lower extremity (Foot) Radiation: none Exacerbating factors: weight bearing, walking and palpation Associated symptoms: Deny chest pain, fever(s) or rash Related Data Previous Rx's ?Medication ?Instructions ?Recorded amoxicillin 875 mg-potassium 1 tab PO BID #10 tabs 06/14 clavulanate 125 mg tablet hydrocodone 5 mg-acetaminophen 325 1 tab PO Q8H PRN pa in #7 tabs 01/02/24 mg tablet Allergies Allergy/AdvReac Type Severity Reaction Status Date / Time No Known Allergies Allergy Verified 01/13/25 16:36 Review of Systems General: Reports: 10 or more systems reviewed and unremarkable except in HPI and below Const: Denies: fever(s) or chills Card: Denies: chest pain Resp: Denies: dyspnea or productive cough GI: Denies: abdominal pain, nausea, vomiting or diarrhea : Denies: flank pain Musc: Reports: extremity pain (Left foot) and extremity swelling (Dorsal left foot); Denies: neck pain, back pain, joint pain, joint swelling, joint redness, joint warmth, limited range of motion or muscle weakness Skin/Breast: Denies: rash Neuro: Denies: headache(s), numbness in extremities or weakness in extremities PFSH ED PFSH: Medical History URI with cough and congestion Social History Smoking and tobacco/nicotine status: never used tobacco/nicotine Substance/Drug Use: never Physical Exam Const: COMMON NORMALS: no acute distress, patient oriented x3, no limitations, healthy appearing, alert and well nourished HENMT: COMMON NORMALS: normocephalic and atraumatic HEAD & SCALP: normocephalic and atraumatic Neck/C-Spine: COMMON NORMALS: full ROM, supple and no meningeal signs Resp: COMMON NORMALS: normal respiratory effort, No use of accessory muscles and clear to auscultation bilaterally AUSCULTATION: clear to auscultation bilaterally Cardio: COMMON NORMALS: regular rate and regular rhythm RATE: regular rate RHYTHM: regular rhythm Extremity: COMMON NORMALS: full ROM, capillary refill normal, no joint enlargement and no clubbing, cyanosis or edema NARRATIVE EXTREMITY EXAM: Easily reproducible tenderness to palpation overlying left navicular bone, mild swelling. Normal ankle exam. Distal strength intact, distal neurovascular exam intact. Pulses palpable. No signs of trauma, bruising, or other deformity. Neuro: COMMON NORMALS: patient oriented x3, moves all extremities, no focal motor deficits and no sensory deficits noted SENSORIUM/ORIENTATION: Yes alert MENINGEAL SIGNS: Yes no meningeal signs Skin: COMMON NORMALS: no rashes or lesions noted GENERAL SKIN EXAM: no rashes or lesions noted Course Vital Signs: Vital signs: Vital Signs Temperature 97 F L 01/13/25 16:31 Pulse Rate 92 01/13/25 16:31 Respiratory Rate 16 01/13/25 16:31 Blood Pressure 156/96 01/13/25 16:31 Pulse Oximetry 100 01/13/25 16:31 MDM - Extremity (Nontraumatic) Medical Decision Making Patient presenting with left foot pain for about a week, no signs of trauma or deformity on exam, was tender over the navicular bone. X-ray was negative for any acute findings, he does not take any medications or tried any other conserva tive treatments, so I discussed this with the patient and told to follow-up with PCP if he continues to have pain over the weekend. Lab Data Radiology Impressions Foot X-Ray 01/13/25 16:59 IMPRESSION: No acute findings. All radiology interpretation(s) finalized by discharge Discharge Plan Discharge Patient Disposition: Home Clinical Impression: Acute pain of left foot Condition: Stable Prescriptions: No Action amoxicillin-pot clavulanate 875-125 mg tablet 1 tab PO BID Qty: 10 0RF hydrocodone-acetaminophen 5-325 mg tablet 1 tab PO Q8H PRN (Reason: pain) Qty: 7 0RF Discharge Orders: Discharge ED (Routine); Ordered 01/13/25 Ordered By: Isaías Raza Referrals: Black Ferro MD [Primary Care Provider] - Activity Restrictions/Additional Instructions: Ibuprofen and Tylenol. Rest and recovery, elevate the left foot and compression. Apply ice as needed. If you continue to have pain over the weekend, follow-up with regular doctor for further evaluation. 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
[2025-01-13] MEDS: naproxen 500 mg Tablet PO (17:38)
[2025-01-13 17:53] VITALS: BP 111/76; PULSE 76; O2SAT 96
== END 2025-01-13 17:54 | disposition home or self-care (01) ==
PROVIDERS: Emergency Provider Physician Assistant; PCP Family Medicine
DX: M79.672 Pain in left foot (principal)
CPT/HCPCS: 73630; 99283; J9999